=== PATIENT | female | born 1945 | race Caucasian/White ===

== ENCOUNTER 2016-04-17 14:47 | Outpatient (CLI) | payer OTHER ==
[2014-09-16 13:44] VITALS: BP 128/62
== END 2016-04-17 14:50 ==
LOC: LABRHC 14:47
PROVIDERS: ATTEND Physician Assistant
DX: N39.0 Urinary tract infection, site not specified (principal)
CPT/HCPCS: 87086

== ENCOUNTER 2016-06-19 13:03 | Outpatient (CLI) | payer OTHER ==
[2014-09-16 13:44] VITALS: BP 128/62
--- NOTE | 2016-06-19 20:33 | Diagnostic Imaging Report ---
KAREN PAVON [facility] [address] [facility] [address] [place], [place]. [address] Report Submission Date: June 19, 2016 2:48:32 PM CDT Patient Study Name: ERG TREVINO Date: June 19, 2016 1:34:28 PM CDT Modality Type: US Gender: F Description: UNILAT LTD STDY EXT VEINS : 47 Institution: [facility] Physician: KAREN PAVON Duplex imaging right lower extremity CLINICAL HISTORY: Right leg swelling and discomfort. Rule out deep venous thrombosis. TECHNIQUE: Real-time sonography of the right lower extremity is performed in transverse and longitudinal views. Doppler interrogation and color flow imaging are additionally used. FINDINGS: There are normal Doppler waveforms from the interrogated vessels with normal respiratory fluctuation and augmentation. The veins in the mid and distal thigh are difficult to visualize because of the depth from the transducer. The veins compress normally. There is no echogenic thrombus identified within the vessel lumen. Interstitial edema is evident throughout the calf. IMPRESSION: No evidence of deep venous thrombosis. Interstitial edema throughout the calf. Electronically signed on June 19, 2016 2:48:32 PM CDT by: Fish ALANIZ
== END 2016-06-19 13:04 ==
LOC: RAD 13:03
PROVIDERS: ATTEND Family Medicine
DX: Z78.0 Asymptomatic menopausal state (principal); M79.89 Other specified soft tissue disorders
CPT/HCPCS: 77080; 93971

== ENCOUNTER 2016-07-01 08:49 | Outpatient (CLI) | payer OTHER ==
[2014-09-16 13:44] VITALS: BP 128/62
== END 2016-07-01 08:50 ==
LOC: LABRHC 08:49
PROVIDERS: ATTEND Physician Assistant
DX: R30.0 Dysuria (principal)
CPT/HCPCS: 87086; 87186

== ENCOUNTER 2016-07-07 08:54 | Outpatient (CLI) | payer OTHER ==
[2014-09-16 13:44] VITALS: BP 128/62
[2016-07-07 09:36] LABS: eGFR (African) 41; eGFR (Non-African) 34
== END 2016-07-07 08:55 ==
LOC: LAB 08:54
PROVIDERS: ATTEND Family Medicine
DX: E78.2 Mixed hyperlipidemia (principal); E03.9 Hypothyroidism, unspecified
CPT/HCPCS: 36415; 80053; 80061; 84443

== ENCOUNTER 2016-07-23 09:42 | Outpatient (CLI) | payer OTHER ==
[2014-09-16 13:44] VITALS: BP 128/62
[2016-07-23 10:38] LABS: eGFR (African) > 60; eGFR (Non-African) 40
== END 2016-07-23 09:43 ==
LOC: LAB 09:42
PROVIDERS: ATTEND Family Medicine
DX: N28.9 Disorder of kidney and ureter, unspecified (principal)
CPT/HCPCS: 36415; 80048

== ENCOUNTER 2016-08-11 13:22 | Outpatient (CLI) | payer OTHER ==
[2014-09-16 13:44] VITALS: BP 128/62
== END 2016-08-11 13:23 ==
LOC: CARD 13:22
PROVIDERS: ATTEND Internal Medicine Cardiovascular Disease
DX: I25.10 Atherosclerotic heart disease of native coronary artery without angina pectoris (principal)
CPT/HCPCS: G0463

== ENCOUNTER 2017-01-04 16:04 | Outpatient (CLI) | payer OTHER ==
[2014-09-16 13:44] VITALS: BP 128/62
== END 2017-01-04 16:05 ==
LOC: LAB 16:04
PROVIDERS: ATTEND Family Medicine
DX: R30.0 Dysuria (principal)
CPT/HCPCS: 87086

== ENCOUNTER 2017-02-19 08:40 | Outpatient (CLI) | payer OTHER ==
[2014-09-16 13:44] VITALS: BP 128/62
--- NOTE | 2017-02-19 09:57 | Diagnostic Imaging Report ---
KAREN PAVON [facility] [address] [facility] [address] [address] Report Submission Date: Feb 19, 2017 9:34:51 AM SENIOR ESTIMATOR Patient Study Name: REG TREVINO Date: Feb 19, 2017 9:04:00 AM SENIOR ESTIMATOR Modality Type: US Gender: F Description: UNILAT LTD STDY EXT VEINS : 47 Institution: [facility] Physician: KAREN PAVON Examination: Ultrasound vein History: Leg discomfort Findings: Sonographic evaluation of the lower extremity venous system from the groin to the popliteal fossa inclusive. Normal compressibility. No luminal filling defect. Normal waveforms and response to augmentation. No popliteal region fluid collection. Minimal subcutaneous edema. Impression: No evidence for deep venous thrombosis. Electronically signed on Feb 19, 2017 9:34:51 AM SENIOR ESTIMATOR by: Lior ALANIZ
== END 2017-02-19 08:42 ==
LOC: RAD 08:40
PROVIDERS: ATTEND Family Medicine
DX: M79.89 Other specified soft tissue disorders (principal)
CPT/HCPCS: 93971

== ENCOUNTER 2017-03-02 11:51 | Outpatient (CLI) | payer OTHER ==
[2014-09-16 13:44] VITALS: BP 128/62
== END 2017-03-02 11:52 ==
LOC: CARD 11:51
PROVIDERS: ATTEND Internal Medicine Cardiovascular Disease
DX: I25.10 Atherosclerotic heart disease of native coronary artery without angina pectoris (principal); M79.661 Pain in right lower leg; R22.41 Localized swelling, mass and lump, right lower limb; E66.9 Obesity, unspecified; R60.9 Edema, unspecified; R60.1 Generalized edema; I50.32 Chronic diastolic (congestive) heart failure
CPT/HCPCS: G0463